=== PATIENT | male | born 1960 | race Two or more races ===

== ENCOUNTER 2019-07-14 11:48 | Emergency (ER) | payer MEDICAID ==
[~2019-07-14] VITALS: Ht 172.7 cm; Wt 86.2 kg
[2019-07-14] MEDS ORDERED: LOSARTAN POTASS50 MG ORAL (11:55)
[2019-07-14] MEDS ORDERED: JANUVIA25 MG ORAL (11:55)
--- NOTE | 2019-07-14 12:05 | NUR ---
Patient arrived to ED from home. Patient stated he has had left calf pain and swelling for the past 8 days. Right lower leg is significantly more swollen than left leg. Pt states pain is a 7/10. Pain worsens upon dorsiflexion. No shortness of breath or chest pain. Pedal pulses present bilaterally, strong. Patient calm and in no distress.
[2019-07-14 12:07] VITALS: BP 170/94
--- NOTE | 2019-07-14 13:17 | NUR ---
ED Nurse Note: pt tolerates iv and lab draw well. family and pt aware pt to have vascular study done.
[2019-07-14 13:43] LABS: BASOPHILS % (AUTO) 0.6 % (0.0-2.0); EOSINOPHILS % (AUTO) 4.7 % (0.0-3.0); HEMATOCRIT 33.2 % (42.0-52.0); HEMOGLOBIN 11.3 G/DL (14.2-18.0); LYMPHOCYTES % (AUTO) 20.2 % (20.0-45.0); MEAN CORPUSCULAR VOLUME 88 FL (80-99); MONOCYTES % (AUTO) 8.8 % (1.0-10.0); NEUTROPHILS % (AUTO) 65.7 % (45.0-75.0); PLATELET COUNT 343 K/UL (150-450); RED BLOOD COUNT 3.76 M/UL (4.70-6.10); RED CELL DISTRIBUTION WIDTH 11.2 % (11.6-14.8); WHITE BLOOD COUNT 8.1 K/UL (4.8-10.8)
--- NOTE | 2019-07-14 13:53 | NUR ---
ED Nurse Note: pt returned from vascular. no changes in s/s
[2019-07-14 13:57] LABS: INR 0.9 (0.9-1.1)
[2019-07-14 13:58] VITALS: BP 171/87
[2019-07-14 13:58] LABS: ANION GAP 7 mmol/L (5-15); BLOOD UREA NITROGEN 43 mg/dL (7-18); CALCIUM 9.2 MG/DL (8.5-10.1); CARBON DIOXIDE 23 MMOL/L (21-32); CHLORIDE 105 MMOL/L (98-107); CREATININE 2.9 MG/DL (0.55-1.30); SODIUM 135 MMOL/L (136-145)
[2019-07-14 14:12] LABS: ALANINE AMINOTRANSFERASE 25 U/L (12-78); ALBUMIN 2.6 G/DL (3.4-5.0); ALBUMIN/GLOBULIN RATIO 0.6 (1.0-2.7); ALKALINE PHOSPHATASE 97 U/L (46-116); ASPARTATE AMINO TRANSFERASE 17 U/L (15-37); BILIRUBIN,TOTAL 0.2 MG/DL (0.2-1.0)
--- NOTE | 2019-07-14 14:22 | Diagnostic Imaging Report ---
Indication: Right leg pain Technique: Grayscale and duplex images of the right lower extremity veins Comparison: none Findings: Grayscale and duplex images demonstrate no evidence of intraluminal thrombus. Normal phasic Doppler waveforms, demonstrating normal augmentation response and no evidence of valvular insufficiency. Normal breast biliary. In the right posterior calf, there is a fluid collection with internal septations. This measures approximately 3.4 cm transverse by 0.8 cm AP by over 5 cm in length. Impression: Negative for evidence of deep venous thrombosis Right posterior calf fluid collection with internal septations. Given history of recent trauma, this could represent a hematoma or a seroma related to muscle injury. However, the possibility of abscess should also be considered. Consider contrast MRI for better characterization as clinically indicated
--- NOTE | 2019-07-14 14:26 | Diagnostic Imaging Report ---
Indication: Shortness of breath Technique: One view of the chest Comparison: none Findings: Lungs and pleural spaces are clear. The heart size is upper limits of normal Impression: No acute process
[2019-07-14] MEDS ORDERED: CEPHALEXIN500 MG ORAL ×2 (14:45)
[2019-07-14] MEDS ORDERED: DOXYCYCLINE MO100 MG ORAL (14:46)
--- NOTE | 2019-07-14 15:40 | NUR ---
Note undone in EDM - 07/14/19 at 1709 by EDWIN ER DISCHARGE NOTE: Patient is cleared to be discharged per ERMD, pt is aox4, on room air, with stable vital signs. pt was given dc and prescription instructions, pt was able to verbalize understanding, pt id band and iv site removed without complications. pt is able to ambulate with steady gait. pt took all belongings. gave pt list of clinics to receive follow-up care.
[2019-07-14 16:16] VITALS: BP 171/87
--- NOTE | 2019-07-14 16:16 | NUR ---
ER DISCHARGE NOTE: Patient is cleared to be discharged per ERMD, pt is aox4, on room air, with stable vital signs. pt was given dc and prescription instructions, pt was able to verbalize understanding, pt id band and iv site removed without complications. pt is able to ambulate with steady gait. pt took all belongings. gave pt list of clinics to receive follow-up care.
--- NOTE | 2019-07-14 18:39 | Emergency Room Report ---
History of Present Illness General Chief Complaint: Hypertension Source: Patient Present Illness Allergies: Coded Allergies: No Known Allergies (Unverified , 07/14/19) Nursing Documentation-[facility] Past Medical History: No History, Except For Hx Hypertension: Yes Hx Diabetes: Yes Physical Exam Vital Signs Date Time Temp Pulse Resp B/P (MAP) Pulse Ox O2 Delivery O2 Flow Rate FiO2 07/14/19 11:52 98.1 88 18 199/100 (133) 96 Room Air 07/14/19 12:07 99 Medical Decision Making Diagnostic Impression: Primary Impression: Hypertension Additional Impression: Renal insufficiency Labs Test 07/14/19 13:10 White Blood Count 8.1 K/UL (4.8-10.8) Red Blood Count 3.76 M/UL (4.70-6.10) Hemoglobin 11.3 G/DL (14.2-18.0) Hematocrit 33.2 % (42.0-52.0) Mean Corpuscular Volume 88 FL (80-99) Mean Corpuscular Hemoglobin 29.9 PG (27.0-31.0) Mean Corpuscular Hemoglobin Concent 33.9 G/DL (32.0-36.0) Red Cell Distribution Width 11.2 % (11.6-14.8) Platelet Count 343 K/UL (150-450) Mean Platelet Volume 5.0 FL (6.5-10.1) Neutrophils (%) (Auto) 65.7 % (45.0-75.0) Lymphocytes (%) (Auto) 20.2 % (20.0-45.0) Monocytes (%) (Auto) 8.8 % (1.0-10.0) Eosinophils (%) (Auto) 4.7 % (0.0-3.0) Basophils (%) (Auto) 0.6 % (0.0-2.0) Prothrombin Time 9.6 SEC (9.30-11.50) Prothromb Time International Ratio 0.9 (0.9-1.1) Activated Partial Thromboplast Time 27 SEC (23-33) Sodium Level 135 MMOL/L (136-145) Potassium Level 5.0 MMOL/L (3.5-5.1) Chloride Level 105 MMOL/L (98-107) Carbon Dioxide Level 23 MMOL/L (21-32) Anion Gap 7 mmol/L (5-15) Blood Urea Nitrogen 43 mg/dL (7-18) Creatinine 2.9 MG/DL (0.55-1.30) Estimat Glomerular Filtration Rate 22.5 mL/min (>60) Glucose Level 219 MG/DL (74-106) Calcium Level 9.2 MG/DL (8.5-10.1) Total Bilirubin 0.2 MG/DL (0.2-1.0) Aspartate Amino Transf (AST/SGOT) 17 U/L (15-37) Alanine Aminotransferase (ALT/SGPT) 25 U/L (12-78) Alkaline Phosphatase 97 U/L (46-116) Troponin I 0.001 ng/mL (0.000-0.056) Total Protein 6.8 G/DL (6.4-8.2) Albumin 2.6 G/DL (3.4-5.0) Globulin 4.2 g/dL Albumin/Globulin Ratio 0.6 (1.0-2.7) Thyroid Stimulating Hormone (TSH) 2.364 uiU/mL (0.358-3.740) Last Vital Signs Date Time Temp Pulse Resp B/P (MAP) Pulse Ox O2 Delivery O2 Flow Rate FiO2 07/14/19 16:16 98.3 84 15 171/87 100 Room Air 99 Disposition: HOME, SELF-CARE Condition: Stable Scripts Doxycycline Monohydrate* (DOXYCYCLINE MONOHYDRATE*) 100 Mg Capsule 100 MG ORAL Q12H, #14 CAP 0 Refills Prov: Sergio Santa MD 07/14/19 Referrals: NOT CHOSEN IPA/,REFERRING (PCP) Patient Instructions: Edema, [id number] Sergio Santa MD Jul 14, 2019 18:38
--- NOTE | 2019-07-18 12:16 | Cardiology Report ---
APPROVED REPORT EKG Measurement Heart [id number] Normal sinus rhythm Left axis deviation Abnormal ECG
== END 2019-07-14 16:16 | disposition home or self-care (01) ==
LOC: EMR 12:33
DX: I10 Essential (primary) hypertension (principal); N28.9 Disorder of kidney and ureter, unspecified; E11.9 Type 2 diabetes mellitus without complications
CPT/HCPCS: 36415; 71045; 80053; 84443; 84484; 85025; 85610; 85730; 93005; 93971; 96374; J1940; Z7502; 99284

== ENCOUNTER 2019-10-02 12:45 | Emergency (ER) | payer MEDICAID ==
[~2019-10-02] VITALS: Ht 175.3 cm; Wt 80.7 kg
[~2019-10-02 12:45] MED LIST: CEPHALEXIN500 MG ORAL; DOXYCYCLINE MO100 MG ORAL; JANUVIA25 MG ORAL; LOSARTAN POTASS50 MG ORAL
[2019-10-02 12:55] VITALS: BP 186/90
--- NOTE | 2019-10-02 12:55 | NUR ---
ED Nurse Note: Patient arrived to ED by car from home c/o fainting. Patient hit head and arma dn currently has 10/10 pain. Patient AxO x 4, VSS. No s/s of acute distress. Bed in lowest position.
--- NOTE | 2019-10-02 13:15 | NUR ---
ED Nurse Note: Patient taken to CT
--- NOTE | 2019-10-02 14:14 | Diagnostic Imaging Report ---
Indications: Head trauma, syncope Technique: Spiral acquisitions obtained through the brain. Angled axial and coronal 5 x 5 mm slices were reconstructed. Total dose length product 1394 mGycm. CTDI vol(s) 62 mGy. Dose reduction achieved using automated exposure control Comparison: None. Findings: No acute intracranial hemorrhage or edema. No mass effect nor midline shift. Normal size ventricles and extra axial CSF spaces. Normal yoo-white differentiation. There is an old lacunar infarct in the left basal ganglia. Intact calvarium. The mastoids are clear. There is minimal right maxillary sinus mucosal thickening. Impression: Negative for acute intracranial bleed or mass effect Old right basal ganglia lacunar infarct Right maxillary sinus mucosal disease This agrees with the preliminary interpretation provided overnight by [facility] teleradiology service. The CT scanner at [facility] is accredited by the [employer] and the scans are performed using protocols designed to limit radiation exposure to as low as reasonably achievable to attain images of sufficient resolution adequate for diagnostic evaluation.
[2019-10-02] MEDS ORDERED: IBUPROFEN600 MG ORAL (14:32)
[2019-10-02] MEDS ORDERED: AMOXICILLIN500 MG ORAL (14:32)
[2019-10-02 14:55] VITALS: BP 162/81
--- NOTE | 2019-10-02 14:55 | NUR ---
Patient cleared for DC by Dr. Vazquez. Patient AxO x 4, VSS. Patient verbalized understanding of DC instructions. Patient ID band removed. Patient ambulates with steady gait and took all belongings.
--- NOTE | 2019-10-02 15:22 | Emergency Room Report ---
History of Present Illness General Chief Complaint: Head Injury Source: Patient Present Illness HPI 59-year-old male presents ED for evaluation. States that he has a headache and shoulder pain. States that he had a mechanical fall yesterday. Hit his head and his shoulder. Questionable LOC. Pain is 9 out of 10, sharp, nonradiating. States that he has been coughing a lot for the last 3 weeks. With phlegm. States that he was feeling weak when he fell. Denies any dizziness or weakness at this time. No other aggravating relieving factors. Denies any other associated symptoms Allergies: Coded Allergies: No Known Allergies (Unverified , 07/14/19) Patient History Past Medical History: DM, HTN Past Surgical History: none Pertinent Family History: none Social History: Denies: smoking, alcohol use, drug use Immunizations: UTD Reviewed Nursing Documentation: PMH: Agreed; PSxH: Agreed Nursing Documentation-PMH Past Medical History: No Stated History Hx Hypertension: Yes Hx Diabetes: Yes Review of Systems All Other Systems: negative except mentioned in HPI Physical Exam Vital Signs Date Time Temp Pulse Resp B/P (MAP) Pulse Ox O2 Delivery O2 Flow Rate FiO2 10/02/19 12:48 97.5 76 16 186/90 (122) 95 Room Air Sp02 EP Interpretation: reviewed, normal General Appearance: no apparent distress, alert, GCS 15, non-toxic Head: normocephalic, atraumatic Eyes: bilateral eye normal inspection, bilateral eye PERRL ENT: hearing grossly normal, normal pharynx, no angioedema, normal voice Neck: full range of motion, supple/symm/no masses Respiratory: chest non-tender, lungs clear, normal breath sounds, speaking full sentences Cardiovascular #1: regular rate, rhythm, no edema Cardiovascular #2: 2+ carotid (R), 2+ carotid (L), 2+ radial (R), 2+ radial (L) , 2+ dorsalis pedis (R), 2+ dorsalis pedis (L) Gastrointestinal: normal bowel sounds, non tender, soft, non-distended, no guarding, no rebound Rectal: deferred Genitourinary: normal inspection, no CVA tenderness Musculoskeletal: back normal, normal range of motion, gait/station normal, swelling - R shoulder Neurologic: alert, motor strength/tone normal, oriented x3, sensory intact, responsive, speech normal Psychiatric: judgement/insight normal, memory normal, mood/affect normal, no suicidal/homicidal ideation Reflexes: 3+ bicep (R), 3+ bicep (L), 3+ tricep (R), 3+ tricep (L), 3+ knee (R) , 3+ knee (L) Skin: no rash Lymphatic: no adenopathy Medical Decision Making Diagnostic Impression: Primary Impression: Atypical pneumonia Additional Impressions: Acute head injury Qualified Codes: S09.90XA - Unspecified injury of head, initial encounter Shoulder injury Qualified Codes: S49.91XA - Unspecified injury of right shoulder and upper arm , initial encounter ER Course Hospital Course 59 yo M presents with R shoulder pain, cough, headache s/p fall Differential diagnoses include: Fracture, dislocation, sprain, contusion Clinical course Patient placed on stretcher. After initial history and physical, I ordered pain medications, CXR, R shoulder xray, EKG, CT head CT head negative EKGnormal sinus rhythm no acute ischemic changes interpreted by me R shoulder xray - no fx, dislocation CXR - cardiomegay, interstitial congestion I discussed findings with patient and family. Placed in shoulder sling. Given cough for 3 weeks we will treat as pneumonia and prescribed antibiotics. Safe for discharge for close outpatient follow-up. I will provide referrals Diagnosis -atypical pneumonia, acute head injury, shoulder injury Stable and discharged to home with prescription for Motrin, amoxicillin. apply ice, keep elevated. weight bear as tolerated. Followup with PMD. Return to ED if symptoms recur or worsen EKG Diagnostic Results Rate: normal Rhythm: NSR ST Segments: no acute changes ASA given to the pt in ED: No Rhythm Strip Diag. Results EP Interpretation: yes Rhythm: NSR, no PVC's, no ectopy Chest X-Ray Diagnostic Results Chest X-Ray Diagnostic Results : Chest X-Ray Ordered: Yes # of Views/Limited/Complete: 1 View Indication: Other - cough EP Interpretation: Yes Interpretation: no pneumothorax, other - cardiomegaly. interstitial congestion Impression: Other - cardiomegaly Electronically Signed by: Electronically signed by Kevin Vazquez MD CT/MRI/US Diagnostic Results CT/MRI/US Diagnostic Results : Imaging Test Ordered: CT Head Impression no acute process Last Vital Signs Date Time Temp Pulse Resp B/P (MAP) Pulse Ox O2 Delivery O2 Flow Rate FiO2 1/5/20 12:48 97.5 76 16 186/90 (122) 95 Room Air Status: improved Disposition: HOME, SELF-CARE Condition: Stable Scripts Ibuprofen* (MOTRIN*) 600 Mg Tablet 600 MG ORAL Q8H PRN for For Pain, #30 TAB 0 Refills Prov: Kevin Vazquez MD 10/02/19 Amoxicillin* (AMOXIL*) 500 Mg Capsule 500 MG ORAL THREE TIMES A DAY, #21 CAP Prov: Kevin Vazquez MD 10/02/19 Referrals: NOT CHOSEN IPA/,REFERRING (PCP) [facility] Patient Instructions: Community-Acquired Pneumonia, Adult, Cepq-bo-Tnps Kevin Vazquez MD Oct 02, 2019 15:22
--- NOTE | 2019-10-03 09:35 | Diagnostic Imaging Report ---
Indication: Reason For Exam: COUGH Technique: One view of the chest Comparison: none Findings: Low lung volumes. Lungs and pleural spaces are otherwise clear. The heart size is normal. No significant interim change Impression: No acute process
--- NOTE | 2019-10-03 09:38 | Diagnostic Imaging Report ---
. Indication: Pain, trauma, status post fall Technique: 3 views of the right shoulder Comparison: none Findings: No acute fractures. No dislocations. The joint spaces are preserved Impression: Negative
== END 2019-10-02 14:55 | disposition home or self-care (01) ==
LOC: EMR 13:00
DX: S49.91XA Unspecified injury of right shoulder and upper arm, initial encounter (principal); S09.90XA Unspecified injury of head, initial encounter; J18.9 Pneumonia, unspecified organism; W19.XXXA Unspecified fall, initial encounter; Y92.9 Unspecified place or not applicable; E11.9 Type 2 diabetes mellitus without complications; I10 Essential (primary) hypertension; I51.7 Cardiomegaly
CPT/HCPCS: 70450; 71045; 73030; 93005; Z7502; 99284

== ENCOUNTER 2020-08-26 13:56 | Inpatient (IN) | payer MEDICAID ==
[~2020-08-26] VITALS: Ht 170.2 cm; Wt 83.9 kg
[~2020-08-26 13:56] MED LIST changes: +AMOXICILLIN500 MG ORAL; +IBUPROFEN600 MG ORAL
--- NOTE | 2020-08-26 14:14 | Emergency Room Report ---
History of Present Illness General Chief Complaint: Generalized Weakness Source: Patient Present Illness HPI 59-year-old male with past medical history of diabetes, malignant hypertension, CKD presents with generalized weakness x2 days. Patient complains of generalized swelling and left greater than right ankle swelling, dyspnea on exertion, and shortness of breath x 2 weeks. He denies previous history of cardiac issue, renal issue, or liver issue. Denies fever, cough, hemoptysis, chills, history of blood clot, trauma/immobi lization, nausea, vomiting, diarrhea, dysuria, cough, headache, neck pain, photophobia, rash or other symptoms. The patient's symptoms were gradual onset, severity was moderate, duration since 2 weeks, but worse over the past 2 days. Quality: Generally weak Past medical history: Diabetes, hypertension Past surgical history: Denies Smoking: Denies Alcohol use: Denies Drug use: Denies Review of systems: CONST: No fevers or chills, No night sweats PULMONARY: No productive cough, positive shortness of breath CARDIAC: No chest pain, No palpitations GI: No vomiting, No diarrhea , No melena_or_BRBPR : No dysuria, No hematuria, No discharge NEURO: No new_focal_weakness_or_numbness, No confusion, No vision changes 14 point Review of Systems is otherwise negative except per HPI Physical Exam: GENERAL: Awake_alert_ nontoxic, no acute distress Spo2 96% on RA -normal EYES: Extraocular muscles are intact. Conjunctivae clear. Lids without swelling ENT: External nose and ear normal_in_appearance. Oropharynx clear. Head_atraumatic, Moist_oral_mucosa NECK: No JVD. No meningismus. No thyromegaly. Supple. Trachea midline RESP: Normal respiratory effort. Symmetric rise. Coarse breath sounds bilaterally CARDIAC: Regular rate and regular rhytm. Left lower extremity 2+ pitting edema. Right lower extremity 1+ pitting edema ABDOMEN: Soft. Nondistended. Nontender_No_rebound_or_guarding. MSK: Normal muscle tone, without rigidity. Extremities without asymmetric deformity or swelling. SKIN: Warm and dry. No visible cyanosis or pallor NEUROLOGIC: Alert, oriented x3. Motor_and_sensation_grossly_intact. No truncal ataxia. Gait_normal Psych: Normal mood and affect, normal judgment and insight - COORDINATION OF CARE Case was discussed with: Patient Any labs and imaging that were ordered were interpreted as part of the medical decision making: Medical Decision Making/Plan: Differential diagnosis includes dehydration, hypovolemia, electrolyte derangement such as hyponatremia / hypoglycemia, neuromuscular junction disorder such as myasthenia gravis, GI bleed, anemia, UTI, new onset CHF, DVT, viral syndrome among others. The patient feels generally weak but has no focal neurologic deficits, abnormal muscle tone, hypo/hyperreflexia, or fatigability. No evidence of stroke, spinal cord emergency, neuromuscular junction disorder, or multiple sclerosis at this time. Lab results show several critical values. Patient has NARA on CKD and is now in renal failure. Creatinine today is 8.6. Baseline is 2.9. BNP is 13,804. Troponin is negative x1. Hemoglobin is also critically low at 7.1, normocytic. Baseline hemoglobin is 11.3 as of 2019. Patient denies any sort of GI bleeding at this time. He is hemodynamically stable. I suspect that this is likely a function of his ongoing progressive renal dysfunction. Doubt occult GI bleed. Abdominal examination is nonperitoneal and nontender. Duplex US is negative for DVT. CXR shows vascular congestion, cardiomegaly, atelectasis, consistent with fluid overload from likely ESRD and CHF EKG shows sinus rhythm with first-degree AV block. There is a right bundle branch block. The patient appears well hydrated and has normal vitals, no evidence of significant dehydration / hypovolemia at this time. Covid swab is negative Patient received Rocephin, azithromycin, Lasix, and nitroglycerin. He will receive 1 unit PRBC in the emergency department. I spoke with Dr. Dhillon, and reviewed the patients presentation, workup, results, and treatment. They will admit the patient for further care and evaluation, and assume care of the patient at this time. Allergies: Coded Allergies: No Known Allergies (Unverified , 07/14/19) COVID-19 Screening Contact w/high risk pt: No Experienced COVID-19 symptoms?: No COVID-19 Testing performed MANAGER ROOM: No Nursing Documentation-[facility] Past Medical History: No History, Except For Hx Hypertension: Yes Hx Diabetes: Yes Physical Exam Vital Signs Date Time Temp Pulse Resp B/P (MAP) Pulse Ox O2 Delivery O2 Flow Rate FiO2 08/26/20 14:03 98.1 76 20 181/85 (117) 96 Room Air Sp02 EP Interpretation: reviewed, normal Medical Decision Making Diagnostic Impression: Primary Impression: Episode of generalized weakness Additional Impressions: Renal failure Anemia CHF (congestive heart failure) Dehydration Hypocalcemia Fluid overload Pneumonia Hypertension EKG Diagnostic Results Troponin ordered: Yes When was troponin ordered?: Aug 26, 2020 RAUL Scribdesiree Text 12-lead EKG (interpreted by me) Time: 1446 Indication: Rhythm analysis Tracing visualized and Interpreted by me. Rhythm: Normal sinus rhythm Rate: 72 bpm QTc: 497 Morphology: No_significant_ST_elevations_or_depressions, No STEMI Impression: Sinus rhythm. First-degree AV block. Right bundle branch block. Rhythm Strip Diag. Results Rhythm Strip Time: 14:49 EP Interpretation: yes Rate: 76 Rhythm: NSR, no PVC's, no ectopy Chest X-Ray Diagnostic Results Chest X-Ray Diagnostic Results : RAUL Scribe Text Chest X-Ray: Views: [ 1 ] view(s) Indication: Shortness of breath Findings: Cardiomegaly. Peripheral vascular congestion versus pneumonia Impression: CHF The X-ray(s) were independently viewed and interpreted contemporaneously Electronically signed by Nadya ma DO Reevaluation Time: 14:50 Last Vital Signs Date Time Temp Pulse Resp B/P (MAP) Pulse Ox O2 Delivery O2 Flow Rate FiO2 08/26/20 14:03 98.1 76 20 181/85 (117) 96 Room Air Status: improved Disposition: ADMITTED INPATIENT Admit Decision Time: 14:50 Condition: Stable Nadya Wilson D.O. Aug 26, 2020 14:14
[2020-08-26 14:30] VITALS: BP 181/85
[2020-08-26 15:11] LABS: APPEARANCE,URINE CLEAR; BILIRUBIN, URINE NEGATIVE (NEGATIVE); COLOR,URINE PALE YELLOW; GLUCOSE, URINE (UA) 2+ (NEGATIVE); KETONES,URINE NEGATIVE (NEGATIVE); LEUKOCYTE ESTERASE ,URINE NEGATIVE (NEGATIVE); NITRITE,URINE NEGATIVE (NEGATIVE); PH,URINE 6 (4.5-8.0); PROTEIN,URINE 4+ (NEGATIVE); UROBILINOGEN,URINE NORMAL MG/DL (0.0-1.0)
[2020-08-26 15:13] LABS: HEMATOCRIT 21.6 % (42.0-52.0); HEMOGLOBIN 7.1 G/DL (14.2-18.0); MEAN CORPUSCULAR VOLUME 91 FL (80-99); PLATELET COUNT 257 K/UL (150-450); RED BLOOD COUNT 2.38 M/UL (4.70-6.10); RED CELL DISTRIBUTION WIDTH 13.9 % (11.6-14.8)
[2020-08-26] MEDS ORDERED: cefTRIAXone 1 GM in NS 55 ML IVPB ONE (15:15)
[2020-08-26] MEDS ORDERED: Azithromycin 500 MG in NS 275 ML IVPB ONE (15:15)
[2020-08-26] MEDS ORDERED: dexAMETHasone 10mg/ml Inj IV ONE (15:15)
[2020-08-26 15:29] LABS: ANION GAP 11 mmol/L (5-15); BLOOD UREA NITROGEN 71 mg/dL (7-18); CALCIUM 7.2 MG/DL (8.5-10.1); CARBON DIOXIDE 18 MMOL/L (21-32); CHLORIDE 107 MMOL/L (98-107); CREATININE 8.6 MG/DL (0.55-1.30); SODIUM 136 MMOL/L (136-145)
--- NOTE | 2020-08-26 15:31 | Diagnostic Imaging Report ---
FILM CXR 1 VIEW HISTORY: Weakness TECHNIQUE: Single view chest One or more of the following dose reduction techniques were used: automated exposure control, adjustment of the mA and/or kV according to patient size, use of iterative reconstruction technique. Total Exam volume computed tomography dose index (CTDIvol) = mGy and Dose Length Product (DLP) = mGY-c COMPARISON: 02 October 2019 FINDINGS: Enlarged heart with perihilar opacities and interstitial prominence. Small pleural effusions are present. Lungs appear worse from prior exam. IMPRESSION: Enlarged heart with perihilar opacities and interstitial prominence from edema or inflammation with small pleural effusions which may be associated with multifocal infection or volume overload
[2020-08-26 15:41] LABS: ALANINE AMINOTRANSFERASE 23 U/L (12-78); ALBUMIN 2.2 G/DL (3.4-5.0); ALBUMIN/GLOBULIN RATIO 0.6 (1.0-2.7); ALKALINE PHOSPHATASE 86 U/L (46-116); ASPARTATE AMINO TRANSFERASE 16 U/L (15-37); BILIRUBIN,TOTAL 0.2 MG/DL (0.2-1.0); CREATINE KINASE 467 U/L (26-308)
[2020-08-26 15:48] LABS: FERRITIN 60 NG/ML (8-388); LACTATE DEHYDROGENASE 295 U/L (81-234)
[2020-08-26] MEDS ORDERED: Nitroglycerin 2% oint pkt TOPIC SCH (16:00)
[2020-08-26] MEDS ORDERED: Acetaminophen 500mg (ES) tab ORAL PRN (17:00)
--- NOTE | 2020-08-26 17:11 | Diagnostic Imaging Report ---
EXAM: US Duplex Bilateral Lower Extremities Veins CLINICAL HISTORY: DVT TECHNIQUE: Real-time duplex ultrasound scan of the bilateral lower extremity veins integrating B-mode two-dimensional vascular structure, Doppler spectral analysis, color flow Doppler imaging and compression. COMPARISON: No relevant prior studies available. FINDINGS: Right deep veins: Unremarkable. No DVT in the right common femoral, femoral, proximal deep femoral or popliteal veins. The veins demonstrate normal color flow, are normally compressible, with normal phasic flow and/or augmentation response. Right superficial veins: Unremarkable. No thrombus in the visualized right great saphenous vein. Left deep veins: Unremarkable. No DVT in the left common femoral, femoral, proximal deep femoral or popliteal veins. The veins demonstrate normal color flow, are normally compressible, with normal phasic flow and/or augmentation response. Left superficial veins: Unremarkable. No thrombus in the visualized left great saphenous vein. Soft tissues: Bilateral soft tissue edema. No popliteal cyst. IMPRESSION: No evidence of deep vein thrombosis.
[2020-08-26] MEDS ORDERED: Labetalol 5mg/ml 20ml vial IV ONE (22:00)
[2020-08-27] MEDS: NovoLOG Insulin Flexpen SUBQ SCH ×4 (08:16→20:59)
[2020-08-27 08:30] VITALS: BP 165/81
[2020-08-27] MEDS: HydrALAZINE 50mg tab ORAL SCH ×3 (08:58→18:28)
--- NOTE | 2020-08-27 09:14 | Consultation ---
DATE OF CONSULTATION: 08/27/2020 NEPHROLOGY CONSULTATION CONSULTING PHYSICIAN: Faustino Torres MD REFERRING PHYSICIAN: Jak Dhillon MD REASON FOR CONSULTATION: Chronic kidney disease. HISTORY OF PRESENT ILLNESS: The patient is a 59-year-old man with a history of diabetes and hypertension. He is a poor historian, presents with generalized weakness, azotemia, and some mild shortness of breath. Chest x-ray showing some interstitial edema. The patient has generalized weakness. He is not complaining of any chest pain or palpitations. No nausea or vomiting. He is a poor historian. PAST SURGICAL HISTORY: Excision of two toes on the right foot. ALLERGIES: None known. MEDICATIONS: He cannot give me an adequate list now. HABITS: He is a nondrinker and nonsmoker. SOCIAL HISTORY: He is , with children, disabled. SYSTEM REVIEW: HEAD, EYES, EARS, NOSE, AND THROAT: He has severely impaired vision in the right eye. Hearing is good. ENDOCRINE: Longstanding diabetes on oral agents. No known thyroid disease. PULMONARY: Recent shortness of breath. No history of chronic cough or asthma. He is a nonsmoker. CARDIAC: See history of present illness. GASTROINTESTINAL: No nausea, vomiting. GENITOURINARY: No dysuria, hematuria, or difficulty voiding. NEUROLOGIC: No CVA or syncope. PHYSICAL EXAMINATION: GENERAL: The patient is a well-developed man, alert and in no acute distress. VITAL SIGNS: Blood pressure 193/85, pulse 76, temperature 98.1. HEAD, EYES, EARS, NOSE, AND THROAT: Sclerae are nonicteric. Ocular motions intact in all directions. He has poor vision in the right eye. NECK: No adenopathy. LUNGS: Clear. HEART: Regular rhythm. There is an apical S4. No murmur. ABDOMEN: Soft without organomegaly or masses. EXTREMITIES: Show 1 to 2+ ankle edema. There is a healed amputations of two toes on the right foot. NEUROLOGIC: He is alert and oriented, no focal findings. REVIEW OF PERTINENT LABS: Show a sodium 136, potassium 5, BUN 71, creatinine 8.6, [place] [address]. Albumin 2.2. Hemoglobin is 7.1. Urinalysis shows 4+ protein, 2+ glucose. IMPRESSION: 1. Chronic kidney disease stage 5 likely diabetic nephropathy as well as hypertensive nephrosclerosis. 2. Severe hypertension. 3. Incomplete database. PLAN: I have discussed the patient that he very well should have dialysis soon social problems related to his lack of adequate insurance. We will put him on Epogen, iron, update labs, and discuss preparing for dialysis. Faustino Torres M.D. DR: Liz JOB#: [id number] CC:
[2020-08-27 10:30] VITALS: BP 162/92
[2020-08-27 11:43] LABS: % IRON SATURATION 10 % (15-50); IRON 29 ug/dL (50-175); TOTAL IRON BINDING CAPACITY 281 ug/dL (250-450)
[2020-08-27 11:58] LABS: FERRITIN 58 NG/ML (8-388)
[2020-08-27 12:00] VITALS: BP 130/67
[2020-08-27 13:48] VITALS: BP 117/61
--- NOTE | 2020-08-27 15:00 | History and Physical Report ---
DATE OF ADMISSION: 08/26/2020 CHIEF COMPLAINT: Shortness of breath. HISTORY OF PRESENT ILLNESS: Patient is a 59-year-old male. He has a history of chronic kidney disease and hypertension, presented with complaints of shortness of breath for several days. The patient has also noted worsening lower extremity edema. On evaluation in emergency room, he was noted to have a creatinine of 8.6. His potassium is normal. His bicarb is slightly low at 18. Chest x-ray had evidence of pulmonary vascular congestion. His hemoglobin was only 7.1. Denies any bleeding. He received a dose of Lasix. He states he feels improved. PAST MEDICAL HISTORY: As above. PAST SURGICAL HISTORY: None. CURRENT MEDICATIONS: None. FAMILY HISTORY: None. SOCIAL HISTORY: Negative for tobacco, ethanol, or drugs. REVIEW OF SYSTEMS: Negative except for shortness of breath. PHYSICAL EXAMINATION: VITAL SIGNS: Temperature 98, pulse 18, blood pressure 135/82. GENERAL: Patient is well developed, in no apparent distress. HEART: Regular rate and rhythm. LUNGS: Clear. ABDOMEN: Soft, nontender, nondistended. EXTREMITIES: Significant for trace pitting edema. LABORATORY DATA: Labs were reviewed. ASSESSMENT: This is a 59-year-old male admitted with complaints of CHF secondary to end-stage renal disease ESRD. 1. CHF and volume overload. 2. Anemia, likely secondary to chronic kidney disease. PLAN: 1. Cautious diuresis. 2. Renal consultation. 3. Check a renal ultrasound. 4. Epogen and iron replacement. 5. Continue BP treatment. Jak Dhillon M.D. DR: MAYA JOB#: [id number] CC:
[2020-08-27] MEDS: Aspirin EC 81mg tab ORAL SCH (15:12)
[2020-08-27] MEDS: Metoprolol Succinate XL 25mg tab ORAL SCH (15:13)
[2020-08-27 16:00] VITALS: BP 137/54
[2020-08-27] MEDS: cefTRIAXone 1 GM in D5W 55 ML IVPB SCH (18:28)
[2020-08-27 20:00] VITALS: BP 143/68
[2020-08-27] MEDS ORDERED: Epoetin Alfa-EPBX(ESRD on dialysis)10,000 unit/ml vial SUBQ SCH (21:00)
[2020-08-28] VITALS: BP 178/78
[2020-08-28 04:00] VITALS: BP 140/60
[2020-08-28] MEDS: NovoLOG Insulin Flexpen SUBQ SCH ×4 (06:30→21:00)
[2020-08-28] MEDS: HydrALAZINE 50mg tab ORAL SCH ×4 (06:30→17:40)
[2020-08-28 08:00] VITALS: BP 158/69
[2020-08-28] MEDS: Aspirin EC 81mg tab ORAL SCH (09:22)
[2020-08-28] MEDS: Metoprolol Succinate XL 25mg tab ORAL SCH (09:24)
[2020-08-28 11:37] LABS: HEMATOCRIT 23.8 % (42.0-52.0); HEMOGLOBIN 7.6 G/DL (14.2-18.0); MEAN CORPUSCULAR VOLUME 92 FL (80-99); PLATELET COUNT 238 K/UL (150-450); RED CELL DISTRIBUTION WIDTH 14.1 % (11.6-14.8); WHITE BLOOD COUNT 8.7 K/UL (4.8-10.8)
[2020-08-28 11:56] LABS: ALBUMIN 2.2 G/DL (3.4-5.0); ALBUMIN/GLOBULIN RATIO 0.6 (1.0-2.7); BILIRUBIN,TOTAL 0.2 MG/DL (0.2-1.0); CALCIUM 7.5 MG/DL (8.5-10.1); CREATININE 9.5 MG/DL (0.55-1.30); POTASSIUM 5.1 MMOL/L (3.5-5.1)
[2020-08-28 12:00] VITALS: BP 154/75
[2020-08-28 16:00] VITALS: BP 161/77
--- NOTE | 2020-08-28 17:03 | Nephrology Progress Note ---
Assessment/Plan Problem List: (1) Hypertensive nephrosclerosis (2) Nephropathy due to secondary diabetes (3) Anemia in chronic kidney disease (4) CKD (chronic kidney disease) stage 5, GFR less than 15 ml/min (5) CHF (congestive heart failure) (6) Hypertension Plan epo venofer, due to poor insurance and no urgency dc plan for home and to be seen at [facility] Subjective Constitutional: Reports: weakness HEENT: Reports: blurred vision Genitourinary: Reports: no symptoms Neurologic/Psychiatric: Reports: no symptoms Objective Objective Last 24 Hour Vital Signs Date Time Temp Pulse Resp B/P (MAP) Pulse Ox O2 Delivery O2 Flow Rate FiO2 08/28/20 12:19 154/99 08/28/20 12:00 99.2 18 154/75 (101) 99 08/28/20 09:24 69 158/69 08/28/20 09:23 69 158/69 08/28/20 08:00 97.8 68 18 158/69 (98) 98 08/28/20 08:00 69 08/28/20 06:30 140/60 08/28/20 04:00 97.7 69 20 140/60 (86) 99 08/28/20 04:00 65 08/28/20 00:00 97.1 65 20 178/78 (111) 99 08/28/20 00:00 174/78 08/28/20 00:00 68 08/27/20 21:00 Room Air 08/27/20 20:00 65 08/27/20 20:00 97.2 66 18 143/68 (93) 99 08/27/20 18:28 137/54 Intake and Output 08/27/20 08/28/20 19:00 07:00 Intake Total 200 ml 250 ml Balance 200 ml 250 ml Intake Oral 200 ml 250 ml # Voids 1 2 Laboratory Tests 08/28/20 06:27: POC Whole Blood Glucose 121H 08/28/20 10:35: White Blood Count 8.7, Red Blood Count 2.60L, Hemoglobin 7.6L, Hematocrit 23.8L, Mean Corpuscular Volume 92, Mean Corpuscular Hemoglobin 29.4, Mean Corpuscular Hemoglobin Concent 32.1, Red Cell Distribution Width 14.1, Platelet Count 238, Mean Platelet Volume 6.6, Neutrophils (%) (Auto) , Lymphocytes (%) (Auto) , Monocytes (%) (Auto) , Eosinophils (%) (Auto) , Basophils (%) (Auto) , Differential Total Cells Counted 100, Neutrophils % (Manual) 79H, Lymphocytes % (Manual) 8L, Monocytes % (Manual) 11H, Eosinophils % (Manual) 2, Basophils % (Manual) 0, Band Neutrophils 0, Platelet Estimate Adequate, Platelet Morphology Normal, Anisocytosis 1+, Sodium Level 138, Potassium Level 5.1, Chloride Level 108H, Carbon Dioxide Level 17L, Anion Gap 13, Blood Urea Nitrogen 85H, Creatinine 9.5H, Estimat Glomerular Filtration Rate 5.7, Glucose Level 128H, Calcium Level 7.5L, Total Bilirubin 0.2, Aspartate Amino Transf (AST/SGOT) 24, Alanine Aminotransferase (ALT/SGPT) 23, Alkaline Phosphatase 71, Total Protein 5.8L, Albumin 2.2L, Globulin 3.6, Albumin/Globulin Ratio 0.6L Height (Feet): 5 Height (Inches): 7.00 Weight (Pounds): 185 General Appearance: no apparent distress EENT: normal ENT inspection Neck: normal alignment Cardiovascular: normal rate, regular rhythm Respiratory/Chest: lungs clear Abdomen: non tender, soft, no organomegaly Extremities: trace edema 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
[2020-08-28] MEDS: cefTRIAXone 1 GM in D5W 55 ML IVPB SCH (17:41)
[2020-08-28 20:51] VITALS: BP 157/71
--- NOTE | 2020-08-29 12:39 | Discharge Summary ---
Discharge Summary Discharge Summary _ DATE OF ADMISSION: 08/26/2020 DATE OF DISCHARGE: 08/28/2020 DISCHARGED BY: Dr. Dhillon REASON FOR ADMISSION: 59 years old male with past medical history of diabetes mellitus, chronic kidney disease, malignant hypertension, presented with generalized weakness . Patient reported swelling bilateral lower extremity , dyspnea on exertion and shortness of breath, getting progressively worse. Upon evaluation vital signs revealed elevated blood pressure 181/85. Pulse oximetry was stable on room air. Laboratory work-up revealed no leukocytosis , hemoglobin 7.1, hematocrit 21.6. BUN 71, creatinine 8.6. Troponin negative , pro BNP [id number] . Urinalysis revealed +4 protein , no evidence of urinary tract infection. Rapid COVID-19 was negative. In emergency department patient received empiric antibiotic, Lasix and antihypertensive: hydralazine and labetalol , and admitted for further management to telemetry floor. 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 System Manager consulted. Patient initially started on cautious diuresis with close monitoring of volumes and renal parameters. Nephrology discussed with the patient the need to start dialysis soon . Due to a social problem , related to his lack of adequate insurance, unable to start dialysis now/ No urgency for initiation dialysis now . Patient started on Epogen and iron . Blood pressure was managed with multiple antihypertensive, including beta- christina, calcium channel christina , hydralazine and Lasix. Blood sugar was managed with a sliding scale of insulin. Blood pressure improved. Hepatitis B surface antigen negative . Patient clinically stabilized and was ready for discharge with outpatient follow-up with [facility] for initiation of hemodialysis. FINAL DIAGNOSES: CHF Volume overload Acute renal failure on chronic kidney disease stage V Diabetic nephropathy Hypertensive nephrosclerosis Anemia secondary to chronic kidney disease DISCHARGE MEDICATIONS: See Medication Reconciliation list. DISCHARGE INSTRUCTIONS: Patient was discharged home. Follow-up with [facility] next week I have been assigned to dictate discharge summary for this account. I was not involved in the patient's management. Judith Cheng NP Aug 29, 2020 12:39
--- NOTE | 2020-09-01 13:09 | Cardiology Report ---
APPROVED REPORT EKG Measurement Heart [id number] <Conclusion> Sinus rhythm with 1st degree AV block Left axis deviation Right bundle branch block Abnormal ECG
== END 2020-08-28 22:20 | disposition home or self-care (01) | DRG 194 ==
LOC: EMR 14:29 → 2E 15:54 → EDBEDREQSVC 08-27 13:40 → EDBEDREQ 08-27 13:40 → 2E 08-27 14:06
PROC: 30233N1 Transfusion of Nonautologous Red Blood Cells into Peripheral Vein, Percutaneous Approach (ICD-10-PCS; principal; 2020-08-26)
DX: I13.2 Hypertensive heart and chronic kidney disease with heart failure and with stage 5 chronic kidney disease, or end stage renal disease (principal); E11.22 Type 2 diabetes mellitus with diabetic chronic kidney disease; I50.9 Heart failure, unspecified; N18.5 Chronic kidney disease, stage 5; D63.8 Anemia in other chronic diseases classified elsewhere; N17.9 Acute kidney failure, unspecified; I45.10 Unspecified right bundle-branch block
CPT/HCPCS: 36415; 36430; 71045; 80053; 81003; 82550; 82728; 82962; 83036; 83540; 83550; 83605; 83615; 83690; 83880; 84484; 85007; 85025; 85610; 85730; 86140; 86850; 86900; 86901; 86920; 87040; 87181; 87340; 93005; 93970; 96365; 96368; 96375; 99291; J1815; U0002